=== PATIENT | female | born 1995 | race Hispanic/Latino ===

== ENCOUNTER 2016-07-26 14:40 | Emergency (ER) | payer OTHER ==
--- NOTE | 2016-07-26 14:42 | ED PDOC ---
Arrival/HPI - General Time Seen by Provider: 07/26/16 14:42 Historian: Patient - History of Present Illness Narrative History of Present Illness (Text): 07/26/16 14:42 21 y/o female, pmh including ovarian cyst/asthma/seizure, penicillin allergy, c/ o coughing and fatigue x 1 week. Pt. has been coughing on and off, dry coughing , feeling tired and fatigue with the headache occasionally, no dizziness, no night sweat, no numbness or tingling, no recent traveling for the past 4 weeks, no abdominal pain but feels nauseous, no other medical or psychological complaints. Past Medical History - Provider Review Nursing Documentation Reviewed: Yes - Infectious Disease Hx of Infectious Diseases: None - Tetanus Immunization Tetanus Immunization: Up to Date - Pulmonary Hx Asthma: Yes - Neurological Hx Seizures: Yes Other/Comment: aspergers - Integumentary Hx Eczema: Yes - Psychiatric Hx Depression: No Hx Emotional Abuse: No Hx Physical Abuse: No Hx Substance Use: No Other/Comment: ADHD - Past Surgical History Past Surgical History: No Previous - Anesthesia Hx Anesthesia: No - Suicidal Assessment Feels Threatened In Home Enviroment: No Family/Social History - Physician Review Nursing Documentation Reviewed: Yes Family/Social History: Unknown Family HX Smoking Status: Never Smoked Hx Alcohol Use: No Hx Substance Use: No Allergies/Home Meds Allergies/Adverse Reactions: Allergies Oral Allergy Syndrome Allergy (Severe, Uncoded 11/08/14 16:17) Unknown nuts Allergy (Uncoded 02/08/16 18:37) ANAPHYLAXIS pcn Allergy (Uncoded 02/08/16 18:37) ANAPHYLAXIS Home Medications: Home Meds Medication Instructions Recorded Confirmed Methylphenidate Hydrochlorid 36 mg PO DAILY 12/27/12 07/26/16 [Concerta] Albuterol HFA [Ventolin HFA 90 2 puff IH [id number] PRN 11/08/14 07/26/16 mcg/actuation (8 g)] Levocetirizine Dihydrochlori 5 mg PO DAILY 11/08/14 07/26/16 [Xyzal] Montelukast [Singulair] 10 mg PO DAILY 11/08/14 07/26/16 levETIRAcetam [Keppra] 500 mg PO BID 07/26/16 07/26/16 Review of Systems - Review of Systems Constitutional: Fatigue. absent: Fevers Eyes: absent: Vision Changes ENT: absent: Hearing Changes Respiratory: Cough. absent: SOB, Sputum, Wheezing Cardiovascular: absent: Chest Pain Gastrointestinal: Nausea. absent: Abdominal Pain, Diarrhea, Vomiting Genitourinary Female: absent: Dysuria, Frequency, Hematuria, Urine Output Changes, Vaginal Bleeding, Vaginal Discharge Skin: absent: Rash, Pruritis, Skin Lesions Neurological: absent: Headache, Dizziness, Focal Weakness, Gait Changes, Speech Changes, Facial Droop, Disequilibrium, Seizure Physical Exam Vital Signs Reviewed: Yes Vital Signs Temp Pulse Resp BP Pulse Ox 07/26/16 14:41 98.6 F 109 H 16 98/67 L 96 Temperature: Afebrile Pulse: Tachycardic Respiratory Rate: Normal Appearance: Positive for: Well-Appearing, Non-Toxic, Comfortable Pain Distress: Mild Mental Status: Positive for: Alert and Oriented X 3 - Systems Exam Head: Present: Atraumatic, Normocephalic Pupils: Present: PERRL Extroacular Muscles: Present: EOMI Conjunctiva: Present: Normal Ears: Present: NORMAL TM, Normal Canal. No: Erythema Mouth: Present: Moist Mucous Membranes Pharnyx: No: ERYTHEMA, EXUDATE, TONSILS ENLARGED, Peritonsilar Swelling Nose (External): Present: Atraumatic. No: Abrasion, Contusion, Laceration, Lesions Nose (Internal): Present: Normal Inspection, No Active Bleeding. No: Rhinorrhea , Purulent Mucous, Septal Deviation, Septal Hematoma, Epistaxis Neck: Present: Normal Range of Motion, Trachea Midline. No: Meningeal Signs, MIDLINE TENDERNESS, Paraspinal Tenderness, Lymphadenopathy Respiratory/Chest: Present: Clear to Auscultation, Good Air Exchange. No: Respiratory Distress, Accessory Muscle Use, Wheezes, Decreased Breath Sounds, Rales, Retracting, Rhonchi, Tachypneic, Tender to Palpation Cardiovascular: Present: Regular Rate and Rhythm, Normal S1, S2. No: Murmurs Abdomen: Present: Normal Bowel Sounds. No: Tenderness, Distention, Peritoneal Signs, Rebound, Guarding Back: Present: Normal Inspection Upper Extremity: Present: Normal Inspection. No: Cyanosis, Edema Lower Extremity: Present: Normal Inspection, Normal ROM, Capillary Refill < 2 s. No: Edema, Deformity Neurological: Present: GCS=15, Speech Normal, Motor Func Grossly Intact, Gait Normal, Memory Normal Skin: Present: Warm, Dry, Normal Color. No: Rashes Psychiatric: Present: Alert, Oriented x 3, Normal Insight, Normal Concentration Medical Decision Making ED Course and Treatment: 07/26/16 15:19 -labs/rapid flu -chest x-ray -IVF/tylenol/pepcid/zofran -Observe and reassess 07/26/16 15:36 -Resting HR 84, 98% room air, d-dimer canceled. 07/26/16 16:38 -Labs are non-significant except K+ 3.5, potassium chloride 20meq po ordered. -Influenza negative -Chest x-ray show infiltrated, levaquin 750mg IV ordered. -Pt. feels much better, no nausea or vomiting, eating and drinking well, vitally stable, will discharge home. -I explained to the patient that she can not do any gym or exercise while taking this antibiotic as it may causes achilles tendon rupture plus she will need to be stay hydrated. -Discharge home with levaquin, promethazine dm, continue tylenol at home as needed, follow up with your own pmd within 2 days, return to the ER for any new or worsening signs or symptoms. - Lab Interpretations Lab Results: 07/26/16 15:30 07/26/16 15:30 Lab Results 07/26/16 15:30: WBC 6.2 D, RBC 3.91, Hgb 11.4 L, Hct 34.4 L, MCV 88.0, MCH 29.2 , MCHC 33.1, RDW 12.6, Plt Count 216, MPV 10.3, Gran % 64.5, Lymph % (Auto) 14.9 L, Murray % (Auto) 19.5 H, Eos % (Auto) 0.8 L, Baso % (Auto) 0.3, Gran # 3.97 , Lymph # 0.9 L, Murray # 1.2 H, Eos # 0.1, Baso # 0.02, Sodium 137, Potassium 3.5 L, Chloride 99, Carbon Dioxide 29, Anion Gap 13, BUN 14, Creatinine 0.5, Est GFR ( Amer) > 60, Est GFR (Non-Af Amer) > 60, Random Glucose 94, Calcium 9.3, Total Bilirubin 0.5, AST 19, ALT 32, Alkaline Phosphatase 47, NT- Pro-B Natriuret Pep 41.9, Total Protein 7.2, Albumin 4.2, Globulin 3.0, Albumin/ Globulin Ratio 1.4 07/26/16 15:15: Influenza Typ A,B (EIA) Negative for flu a/b I have reviewed the lab results: Yes Interpretation: Abnormal lab values (K+ 3.5) - RAD Interpretation Radiology Orders: 07/26/16 15:17 CHEST PORTABLE [RAD] Stat - Medication Orders Current Medication Orders: Sodium Chloride (Sodium Chloride 0.9%) 1,000 mls @ 500 mls/hr IV .Q2H LUIGI Discontinued Medications Acetaminophen (Tylenol 325mg Tab) 650 mg PO STAT STA Stop: 07/26/16 15:18 Famotidine (Pepcid) 20 mg IVP STAT STA Stop: 07/26/16 15:26 Ondansetron HCl (Zofran Inj) 4 mg IVP STAT STA Stop: 07/26/16 15:26 Potassium Chloride (K-Dur 20 Meq Er Tab) 20 meq PO STAT STA Stop: 07/26/16 16:27 - PA / [employer] / Resident Statement / has reviewed & agrees with the documentation as recorded. Disposition/Present on Arrival - Present on Arrival Any Indicators Present on Arrival: No History of DVT/PE: No History of Uncontrolled Diabetes: No Urinary Catheter: No History of Decub. Ulcer: No History Surgical Site Infection Following: None - Disposition Have Diagnosis and Disposition been Completed?: Yes Diagnosis: Pneumonia, Hypokalemia Disposition: HOME/ ROUTINE Disposition Time: 16:41 Patient Plan: Discharge Patient Problems: Current Active Problems Problem Status Diagnosed Pneumonia Acute Condition: IMPROVED Additional Instructions: Discharge home with levaquin, promethazine dm, continue tylenol at home as needed, follow up with your own pmd within 2 days, return to the ER for any new or worsening signs or symptoms. Prescriptions: Levofloxacin [Levaquin] 750 mg PO DAILY #4 tablet Promethazine DM [Phenergan DM Oral Syrup] 5 ml PO QID PRN #150 ml PRN Reason: Other Forms: WORK NOTE
[2016-07-26 14:56] VITALS: BMI 18.0
[2016-07-26 15:01] VITALS: TEMP 98.6
[2016-07-26] MEDS ORDERED: Sodium Chloride 0.9% 1,000 ML IV SCH (15:30)
[2016-07-26 15:50] LABS: ADD MANUAL DIFF? NO
[2016-07-26 15:56] LABS: BASO # 0.02 K/mm3 (0.0-2.0); BASO % 0.3 % (0.0-3.0); EOS # 0.1 (0.0-0.7); EOS % 0.8 % (1.5-5.0); GRAN # 3.97 (1.4-6.5); GRAN % 64.5 % (50.0-68.0); HEMATOCRIT 34.4 % (36.0-48.0); LYMPH # 0.9 (1.2-3.4); LYMPH % 14.9 % (22.0-35.0); MEAN CORPUSCULAR HEMOGLOBIN 29.2 pg (25.0-35.0); MEAN CORPUSCULAR HGB CONC 33.1 g/dl (31.0-37.0); MEAN PLATELET VOLUME 10.3 fl (7.0-11.0); MONO # 1.2 (0.1-0.6); MONO % 19.5 % (1.0-6.0); PLATELET COUNT 216 10^3/uL (120.0-450.0); RED CELL DISTRIBUTION WIDTH 12.6 % (11.5-14.5); WHITE BLOOD COUNT 6.2 10^3/ul (4.5-11.0)
[2016-07-26 16:09] LABS: ALB/GLOB RATIO 1.4 (1.1-1.8); ALKALINE PHOSPHATASE 47 U/L (38-133); ALT/SGPT 32 U/L (7-56); AST/SGOT 19 U/L (15-39); BILIRUBIN,TOTAL 0.5 mg/dL (0.2-1.3); BLOOD UREA NITROGEN 14 mg/dL (7-21); CALCIUM 9.3 mg/dL (8.4-10.5); CARBON DIOXIDE 29 mmol/L (21-33); CHLORIDE 99 mmol/L (98-107); GFR AFRICAN-AMERICAN > 60; GLUCOSE,RANDOM 94 mg/dL (70-110); POTASSIUM 3.5 mmol/L (3.6-5.0); SODIUM 137 mmol/L (132-148); TOTAL PROTEIN 7.2 g/dL (5.8-8.3)
[2016-07-26] MEDS ORDERED: Potassium Chloride 20 mEq ER Tab PO STA (16:26)
[2016-07-26 17:32] VITALS: PULSE 71
--- NOTE | 2016-07-26 17:42 | RAD ---
HISTORY: cough x 1 week, not resolved. COMPARISON: Chest x-ray performed 12/27/12 TECHNIQUE: Chest, one view. FINDINGS: LUNGS: Hyperinflation. Subtle right medial lower lobe atelectasis. Infiltrate cannot be excluded in the proper clinical setting. Please note that chest x-ray has limited sensitivity for the detection of pulmonary masses. PLEURA: No significant pleural effusion identified. No definite pneumothorax . CARDIOVASCULAR: The cardiomediastinal silhouette appears within normal limits of size. OSSEOUS STRUCTURES: No acute osseous abnormality identified. VISUALIZED UPPER ABDOMEN: Unremarkable. OTHER FINDINGS: None. IMPRESSION: Hyperinflation. Subtle right medial lower lobe atelectasis. Infiltrate cannot be excluded in the proper clinical setting.
[2016-07-26 18:56] VITALS: BP 111/64; RESP 20; O2SAT 100
== END 2016-07-26 19:00 | disposition home or self-care (01) ==
LOC: ED 14:40
DX: E87.6 Hypokalemia (principal); J18.9 Pneumonia, unspecified organism; Z88.0 Allergy status to penicillin
CPT/HCPCS: 71010; 80053; 83880; 85025; 87804; 96374; 96375; 99283; J2405; J7040